=== PATIENT | male | born 1995 | race Caucasian/White ===

== ENCOUNTER 2023-11-27 14:42 | Emergency (ER) | payer MEDICAID ==
--- NOTE | 2023-11-27 14:45 | ERPHSYRPT ---
- History of Present Illness Time Seen by Provider: 11/27/23 14:44 Source: patient, police Exam Limitations: no limitations Physician History: This patient was escorted to our facility by ambulance services and police because he was walking in [facility] but did not want to go to that facility. He was going to be taken to [facility] in [place] and he did not want to go to that facility. He said that he wanted to go to [facility] emergency department. Patient was brought here and left for us to evaluate. Patient denies being suicidal or homicidal. He does have a headache. But he has been walking quite a distance today. He is thirsty. He has aches and pains but he states these are not significant. He does not want any workup done in is refusing any testing. Timing/Duration: today Severity of Symptoms-Max: none Severity of Symptoms-Current: none Associated Symptoms: denies symptoms Previous symptoms: no recent treatment Allergies/Adverse Reactions: No Known Drug Allergies Allergy (Unverified 11/27/23 15:23) Travel Risk - International Travel Have you traveled outside of the country in past 3 weeks: No - Emerging Infectious Disease Are you exhibiting symptoms associated with any current EIDs: No - Past Medical History Pertinent Past Medical History: No - Past Surgical History Past Surgical History: No - Review of Systems Constitutional: No Symptoms Eyes: No Symptoms Ears, Nose, & Throat: No Symptoms Respiratory: No Symptoms Cardiac: No Symptoms Abdominal/Gastrointestinal: No Symptoms Genitourinary Symptoms: No Symptoms Musculoskeletal: No Symptoms Skin: No Symptoms Neurological: No Symptoms Psychological: No Symptoms Endocrine: No Symptoms Hematologic/Lymphatic: No Symptoms Immunological/Allergic: No Symptoms All Other Systems: Reviewed and Negative - Nursing Vital Signs Nursing Vital Signs: Initial Vital Signs Temperature 97.9 F 11/27/23 14:43 Pulse Rate 85 11/27/23 14:43 Respiratory Rate 18 11/27/23 14:43 Blood Pressure 114/81 11/27/23 14:43 O2 Sat by Pulse Oximetry 96 11/27/23 14:43 Pain Scale Pain Intensity 4 - Physical Exam General Appearance: no apparent distress, alert, thin Eyes, Ears, Nose, Throat Exam: normal ENT inspection, moist mucous membranes Neck Exam: normal inspection, non-tender, supple, full range of motion Respiratory Exam: normal breath sounds, lungs clear, airway intact, No chest tenderness, No respiratory distress Cardiovascular Exam: regular rate/rhythm, normal heart sounds, normal peripheral pulses Gastrointestinal/Abdominal Exam: soft, normal bowel sounds, No tenderness Extremities Exam: normal inspection, normal range of motion, No evidence of injury Current Suicidality: denies suicide plan Neurological Exam: alert, normal mood/affect, calm, 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, oriented x 3 Appearance: appropriate appearance, no memory impairment Behavior/Eye Contact/Speech: alert & cooperative, good eye contact, normal speech Thoughts/Hallucinations: no apparent hallucination Skin Exam: normal color, warm, dry SpO2 Interpretation: normal O2 Delivery: Room Air - Course Nursing assessment & vital signs reviewed: Yes Ordered Tests: Medication Summary Discontinued Medications Generic Name Dose Route Start Last Admin Trade Name Reyes PRN Reason Stop Dose Admin Acetaminophen 650 mg 11/27/23 15:21 Acetaminophen 325 Mg Tablet PO 11/27/23 15:22 STAT ONE Ibuprofen 400 mg 11/27/23 15:21 Ibuprofen 400 Mg Tablet PO 11/27/23 15:22 STAT ONE - Progress Progress: unchanged Progress Note: 11/27/23 15:28 This patient was brought to the emergency department for us to evaluate. The patient has been walking quite a distance. He was found walking and there was concern for this patient's wellbeing. He told the police officers/ambulance that he wanted to come to [facility]. Here, he denies any type of injury. He denies suicidal or homicidal thoughts or intentions. He states that he had does have a headache but there is no injury. He only wants a glass of water and some Tylenol and ibuprofen and a ride up north to [facility] possible He is refusing any kind of workup we will attempt to have him sign AGAINST MEDICAL ADVICE form. Medical Desision Making - Diagnostic Testing Diagnostic test were ordered, analyzed, and reviewed by me: No - Risk of complications Low Risk: Low risk of morbidity from additional dx testing or treatment - Departure Departure Disposition: AMA Clinical Impression: Encounter for medical screening examination Condition: Stable Critical Care Time: No Additional Instructions: Drink plenty of fluids. Follow-up with your primary care provider in the next 3 to 5 days for further evaluation management
[2023-11-27 14:48] VITALS: BP 114/81; PULSE 85; RESP 18; TEMP 97.9; O2SAT 96
[2023-11-27] MEDS ORDERED: MOTRIN 400 MG ONE (15:23)
[2023-11-27] MEDS: MOTRIN 400 MG PO ONE (15:24)
[2023-11-27] MEDS ORDERED: TYLENOL 325 MG ONE (15:24)
[2023-11-27] MEDS: TYLENOL 325 MG PO ONE (15:35)
== END 2023-11-27 15:33 | disposition left against medical advice (07) ==
LOC: ED 14:42
DX: Z00.00 Encounter for general adult medical examination without abnormal findings (principal); R51.9 Headache, unspecified
CPT/HCPCS: 99283; A9270-GY